=== PATIENT | female | born 1945 | race Asian ===

== ENCOUNTER 2024-02-03 14:41 | Inpatient (IN) | payer OTHER, MEDICARE ==
[~2024-02-03] VITALS: Ht 157.5 cm; Wt 61.2 kg
[2024-02-03 14:48] VITALS: BP_SYST 139; PULSE 76; RESP 18; TEMP 98.3; O2SAT 98
[2024-02-03 15:51] LABS: BILIRUBIN,URINE NEGATIVE (NEGATIVE); BLOOD, URINE NEGATIVE (NEGATIVE); CLARITY/URINE CLEAR (CLEAR); COLOR,URINE YELLOW (YELLOW); GLUCOSE,URINE TRACE (NEGATIVE); KETONES,URINE NEGATIVE (NEGATIVE); LEUKOCYTE ESTERASE ,URINE NEGATIVE (NEGATIVE); NITRITE, URINE NEGATIVE (NEGATIVE); PROTEIN URINE NEGATIVE (NEGATIVE); UROBILINOGEN,URINE 0.2 (0.2-1.0)
[2024-02-03 16:12] LABS: BASOPHILS % (AUTO) 0.6 % (0.0-2.0); EOSINOPHILS # (AUTO) 0.1 K/uL (0.0-0.4); EOSINOPHILS % (AUTO) 1.7 % (0.0-4.0); HEMATOCRIT 38.2 % (36-48); HEMOGLOBIN 13.1 g/dL (12.0-16.0); LYMPHOCYTES % (AUTO) 18.8 % (20.5-51.5); MEAN CORPUSCULAR HEMOGLOBIN 31 pg (27-31); MEAN CORPUSCULAR HGB CONC 34 % (32-36); MEAN CORPUSCULAR VOLUME 92 fL (79.0-98.0); MONOCYTES # (AUTO) 0.5 K/uL (0.0-1.0); MONOCYTES % (AUTO) 10.1 % (1.7-9.3); NEUTROPHILS # (AUTO) 3.5 K/uL (1.8-7.7); NEUTROPHILS % (AUTO) 68.8 % (40.0-70.0); PLATELET COUNT (AUTO) 200 K/uL (130-430); RED BLOOD CELL COUNT(AUTO) 4.16 MIL/uL (4.2-6.2); RED CELL DISTRIBUTION WIDTH 14.3 % (9.0-15.0); WHITE BLOOD COUNT (AUTO) 5.2 K/uL (4.8-10.8)
[2024-02-03 16:50] LABS: ALANINE AMINOTRANSFERASE 15 U/L (12-78); ALBUMIN 3.4 g/dL (3.4-4.8); ANION GAP 10 (5-15); ASPARTATE AMINOTRANSFERASE 11 U/L (10-37); CALCIUM 8.2 mg/dL (8.4-11.0); CARBON DIOXIDE 26 mmol/L (23-29); CHLORIDE 100 mmol/L (98-107); CREATININE 0.74 mg/dL (0.55-1.30); GLUCOSE 231 mg/dL (74-106); POTASSIUM 3.6 mmol/L (3.5-5.1); SODIUM SERUM 136 mmol/L (136-145); TOTAL BILIRUBIN 0.3 mg/dL (0.0-1.0); TOTAL PROTEIN, SERUM 6.8 g/dL (6.4-8.3); UREA NITROGEN, BLOOD 17 mg/dL (8-21)
[2024-02-03 16:54] LABS: BILIRUBIN,DIRECT 0.1 mg/dL (0.0-0.3)
[2024-02-03] MEDS ORDERED: HYDROcodone/ACETAMIN 5-325 MG TAB (NORCO/ VICODIN) PO PRN (17:45)
[2024-02-03] MEDS ORDERED: LEVA15HF5 INH (18:11)
[2024-02-03] MEDS ORDERED: FAMO40TA71 PO (18:11)
[2024-02-03] MEDS ORDERED: OSIM80TA PO (18:11)
[2024-02-03] MEDS ORDERED: SUCR1TAB2 PO (18:11)
[2024-02-03] MEDS ORDERED: CARV6.2554 PO (18:11)
[2024-02-03] MEDS ORDERED: APIX5TAB PO (18:11)
[2024-02-03] MEDS ORDERED: ATRMDI INH (18:12)
[2024-02-03] MEDS: MORPHINE 2 MG/ML INJ. SYRINGE IVP PRN (19:26)
[2024-02-03] MEDS: HYDROcodone/ACETAMIN 10-325 MG TAB PO PRN (20:45)
[2024-02-03] MEDS ORDERED: MELA10TA2 PO (22:29)
[2024-02-03] MEDS: MELATONIN 5 MG TABLET PO ONE (23:08)
[2024-02-03] MEDS: APIXABAN 2.5 MG TABLET PO ONE (23:11)
[2024-02-03] MEDS: CARVEDILOL 6.25 MG TABLET (COREG) PO ONE (23:16)
[2024-02-03] MEDS: LIDOCAINE PATCH 5% 1 EA TP SCH (23:18)
[2024-02-04] MEDS: KETOROLAC TROMETHAMINE 30 MG VIAL IVP PRN (00:58)
[2024-02-04] MEDS: ONDANSETRON HCL 4 MG/2 ML VIAL IVP PRN (00:59)
[2024-02-04 03:41] VITALS: BP_SYST 164; PULSE 95; RESP 18; TEMP 97.9; O2SAT 97
[2024-02-04] MEDS: CARVEDILOL 6.25 MG TABLET (COREG) PO ONE (04:10)
[2024-02-04] MEDS: MELATONIN 5 MG TABLET PO ONE (04:11)
[2024-02-04 08:43] VITALS: BP_SYST 144; PULSE 71; RESP 17; TEMP 98.2; O2SAT 97
[2024-02-04 08:47] VITALS: O2SAT 97
[2024-02-04] MEDS ORDERED: LEVALBUTEROL Tartrate 15 GM HFA. 45 mCg/Actuation INH PRN ×2 (10:15→13:30)
[2024-02-04] MEDS ORDERED: ONDANSETRON HCL 4 MG/2 ML VIAL IVP PRN (10:15)
[2024-02-04] MEDS ORDERED: IPRATROPIUM BROMIDE 17 mCg/ACTUATION, 12.9 GM AER.W.ADAP INH SCH (10:15)
[2024-02-04] MEDS ORDERED: LORazepam 2 MG/ML VIAL IVP PRN (10:15)
[2024-02-04] MEDS ORDERED: OSIMERTINIB MESYLATE 80 MG PO SCH (10:15)
[2024-02-04 10:51] VITALS: BP_SYST 149; PULSE 84; RESP 18; TEMP 99.5; O2SAT 96
[2024-02-04] MEDS: APIXABAN 2.5 MG TABLET PO ONE (11:22)
[2024-02-04] MEDS ORDERED: FAMOTIDINE 20 MG TABLET PO ONE (11:45)
[2024-02-04 12:30] LABS: BASOPHILS % (AUTO) 0.2 % (0.0-2.0); EOSINOPHILS # (AUTO) 0.1 K/uL (0.0-0.4); HEMATOCRIT 39.4 % (36-48); HEMOGLOBIN 13.5 g/dL (12.0-16.0); LYMPHOCYTES % (AUTO) 11.5 % (20.5-51.5); MEAN CORPUSCULAR HEMOGLOBIN 32 pg (27-31); MEAN CORPUSCULAR HGB CONC 34 % (32-36); MEAN CORPUSCULAR VOLUME 93 fL (79.0-98.0); MONOCYTES # (AUTO) 1.1 K/uL (0.0-1.0); MONOCYTES % (AUTO) 13.1 % (1.7-9.3); NEUTROPHILS # (AUTO) 6.5 K/uL (1.8-7.7); NEUTROPHILS % (AUTO) 74.2 % (40.0-70.0); PLATELET COUNT (AUTO) 208 K/uL (130-430); RED BLOOD CELL COUNT(AUTO) 4.25 MIL/uL (4.2-6.2); RED CELL DISTRIBUTION WIDTH 13.9 % (9.0-15.0); WHITE BLOOD COUNT (AUTO) 8.8 K/uL (4.8-10.8)
[2024-02-04 12:40] LABS: ANION GAP 10 (5-15); CALCIUM 8.2 mg/dL (8.4-11.0); CARBON DIOXIDE 25 mmol/L (23-29); CHLORIDE 90 mmol/L (98-107); CREATININE 0.82 mg/dL (0.55-1.30); GLUCOSE 217 mg/dL (74-106); POTASSIUM 3.4 mmol/L (3.5-5.1); SODIUM SERUM 125 mmol/L (136-145); UREA NITROGEN, BLOOD 16 mg/dL (8-21)
[2024-02-04] MEDS ORDERED: NORMAL SALINE 5 ML DISP.SYRIN IVF SCH (14:00)
[2024-02-04] MEDS ORDERED: IPRATROPIUM BROM 0.5 MG/2.5 ML VIAL.NEB (ATROVENT) INH SCH (15:00)
[2024-02-04] MEDS ORDERED: SUCRALFATE 1 GM TABLET PO SCH (17:00)
[2024-02-04] MEDS ORDERED: NON-FORMULARY MEDICATION (Apixaban (Eliquis) 5 MG) PO SCH (21:00)
[2024-02-04] MEDS ORDERED: NON-FORMULARY MEDICATION (Melatonin 1 TAB) PO SCH (21:00)
[2024-02-04] MEDS ORDERED: CARVEDILOL 6.25 MG TABLET (COREG) PO SCH (21:00)
[2024-02-04] MEDS ORDERED: APIXABAN 2.5 MG TABLET PO SCH (21:00)
[2024-02-04] MEDS ORDERED: MELATONIN 5 MG TABLET PO SCH (21:00)
[2024-02-05] MEDS ORDERED: FAMOTIDINE 20 MG TABLET PO SCH (09:00)
== END 2024-02-04 14:05 | disposition left against medical advice (07) | DRG 347 ==
LOC: SED 14:41 → STU 17:40
PROVIDERS: ADMIT Preventive Medicine Preventive Medicine/Occupational Environmental Medicine; ATTEND Preventive Medicine Preventive Medicine/Occupational Environmental Medicine
DX: M48.56XA Collapsed vertebra, not elsewhere classified, lumbar region, initial encounter for fracture (principal); C34.90 Malignant neoplasm of unspecified part of unspecified bronchus or lung; C79.31 Secondary malignant neoplasm of brain; I48.0 Paroxysmal atrial fibrillation; E83.52 Hypercalcemia; R73.9 Hyperglycemia, unspecified; Z53.29 Procedure and treatment not carried out because of patient's decision for other reasons; Z79.01 Long term (current) use of anticoagulants
CPT/HCPCS: 36415; 71045; 72131; 80048; 80076; 81001; 81003; 83880; 84484; 85025; 85379; 93005; 93306; 96374; 97116-GP; 97530-GP; 99285; G0378; J1885; J2270; J2405